=== PATIENT | female | born 1970 | race Caucasian/White ===

== ENCOUNTER 2016-12-08 16:16 | Inpatient (IN) | payer MEDICAID ==
[~2016-12-08] VITALS: Ht 165.1 cm; Wt 99.8 kg
--- NOTE | 2016-12-08 17:08 | NUR ---
RECIEVED PT TO THE FLOOR AT THIS TIME VIA DIRECT ADMIT FROM DR. GALLEGOS'S OFFICE. ORIENTED PT TO ROOM AND FLOOR AT THIS TIME. AWATING ORDERS TO BE PLACED BY DOCTOR AT THIS TIME. ASSESSMENT DONE PER FLOWSHEET. BED IN LOW POSITION AND CALL LIGHT WITHIN REACH. WILL CONTINUE TO MONITOR.
[2016-12-08] MEDS ORDERED: ZESTRIL20 MG PO (17:09)
[2016-12-08] MEDS ORDERED: TENORMIN25 MG PO (17:10)
[2016-12-08] MEDS ORDERED: VALIUM 2 MG TAB2 MG PO (17:10)
[2016-12-08] MEDS ORDERED: HYDROCODON-ACE1 EAC6 PO (17:11)
[2016-12-08] MEDS ORDERED: PRINZIDE 20/12.1 TA1 PO (17:13)
--- NOTE | 2016-12-08 18:35 | NUR ---
IV STARTED TO THE RIGHT WRIST AT THIS TIME. 22G FLUSHED WITH 10CC OF NS AND SECURED WITH OP-SITE AND TAPE. S/L AT THIS TIME AWAITING ORDERS. BED IN LOW POSITION AND CALL LIGHT WITHIN REACH. WILL CONTINUE TO MONITOR.
[2016-12-08 18:43] VITALS: BP 136/79; Ht 165.1 cm; Wt 99.8 kg
[2016-12-08 20:00] VITALS: BP 138/81
[2016-12-08 20:52] LABS: BASOPHILS 0.2 % (0-2); EOSINOPHILS 2.2 % (0-7); HEMATOCRIT 34.7 % (36.0-48.0); HEMOGLOBIN 11.4 g/dL (12-16); IMMATURE GRANULOCYTES 0.1 % (0-5); LYMPHOCYTES 34.7 % (15-50); MCH 29.9 pg (26.0-34.0); MCHC 32.9 g/dL (31.0-37.0); MCV 91.1 fL (80.0-100.0); MEAN PLATELET VOLUME 9.5 fL (7.4-10.4); MONOCYTES 8.1 % (2-11); NEUTROPHILS 54.7 % (40-80); PLATELET COUNT 267 10x3/uL (130-400); RBC 3.81 10x6/uL (4.00-5.40); RDW 12.5 % (11.5-14.5); WBC 9.2 10x3/uL (4.8-10.8)
[2016-12-08 20:57] LABS: ALBUMIN 3.2 g/dL (3.4-5.0); ANION GAP 11.8 mmol/L (8-16); BILIRUBIN - TOTAL 0.44 mg/dL (0.2-1.3); CALCIUM 8.7 mg/dL (8.5-10.1); CARBON DIOXIDE 25.9 mmol/L (21.0-32.0); CREATININE - SERUM 0.9 mg/dL (0.6-1.3); POTASSIUM - SERUM 3.7 mmol/L (3.5-5.1); PROTEIN - SERUM 7.4 g/dL (6.4-8.2)
[2016-12-09] VITALS (8 sets, daily range): BP systolic 102–124; BP diastolic 58–75
--- NOTE | 2016-12-09 07:30 | NUR ---
RECIEVED PT DURING WALKING ROUNDS. PT RESTING IN BED WITH COMPLAINTS OF PAIN OF A 6 ON A SCALE OF 1-10. INTERVENTIONIST IN USE. ASSESSMENT DONE PER FLOWSHEET. BED IN LOW POSITION AND CALL LIGHT WITHIN REACH. WILL CONTINUE TO MONITOR.
--- NOTE | 2016-12-09 09:25 | NUR ---
PT PLACED IN ISOLATION PER VERBAL ORDER FROM DR. REYES, WILL CONTINUE TO MONITOR.
--- NOTE | 2016-12-09 12:50 | NUR ---
PT TAKEN FOR SURGERY AT THIS TIME.
--- NOTE | 2016-12-09 15:14 | NUR ---
RECEIVED PT FROM OR WITH DEBRIDEMENT OF LEFT BUTTOCK, DRESSING INTACT.
[2016-12-10] VITALS: BP 126/66
[2016-12-10 04:00] VITALS: BP 129/77
--- NOTE | 2016-12-10 07:15 | NUR ---
REPORT RECEIVED FROM WEIGHT TRAINER NURSE. CALL LIGHT IN REACH.
[2016-12-10 08:05] VITALS: BP 146/76
--- NOTE | 2016-12-10 09:43 | NUR ---
ASSESSMENT COMPLETED. IV TO RIGHT WRIST WITH TENDERNESS AND REDNESS. DC'D WITH TIP INTACT. RESITED TO LEFT FOREARM WITH 22 GA X1 STICK. PROTONIX IVP AND MERREM IVPB OVER 3 HOURS PER HOUR. DILAUDID SCOOP FILLER SETTINGS CHANGED TO 0.2/10 WITH NO LOCKOUT PER ORDER. SCDs APPLIED TO BLE. DRSG TO BUTTOCKS CHANGED PER ORDER. CALL LIGHT IN REACH. WILL CONTINUE WITH PLAN OF CARE.
--- NOTE | 2016-12-10 11:20 | NUR ---
LYING IN BED WITH EYES CLOSED. RESP EVEN AND UNLABORED. CALL LIGHT IN REACH.
[2016-12-10 12:12] VITALS: BP 144/74
--- NOTE | 2016-12-10 13:59 | NUR ---
VANCOMYCIN IVPB. DENIES NEEDS AT THIS TIME. CALL LIGHT IN REACH.
--- NOTE | 2016-12-10 14:40 | NUR ---
DR. GALLEGOS IN ROOM TO SEE PATIENT.
[2016-12-10 16:07] VITALS: BP 150/62
--- NOTE | 2016-12-10 16:20 | NUR ---
RESTING WITH EYES CLOSED. RESP EVEN AND UNLABORED. CALL LIGHT IN REACH.
--- NOTE | 2016-12-10 18:00 | NUR ---
PATIENT IN BED WITH NO COMPLAINTS. CALL LIGHT WITHIN REACH.
--- NOTE | 2016-12-10 18:07 | NUR ---
NO CHANGES IN INITIAL ASSESSMENT. SCDs TO BLE. CALL LIGHT IN REACH. WILL CONTINUE WITH PLAN OF CARE.
[2016-12-10 20:00] VITALS: BP 131/76
[2016-12-11] VITALS: BP 146/90
--- NOTE | 2016-12-11 00:43 | NUR ---
AWAKE. DENIES ANY NEEDS. BED IS LOW WITH SR UP X2. CALL LIGHT IN REACH.
--- NOTE | 2016-12-11 07:15 | NUR ---
REPORT RECEIVED FROM RACK CARRIER NURSE. CALL LIGHT IN REACH.
[2016-12-11 08:24] VITALS: BP 135/68
--- NOTE | 2016-12-11 08:30 | NUR ---
ASSESSMENT COMPLETE. IV TO L FA PATENT. NS INFUSING AT 125 CC/HR VIA PUMP. PAPER CLEANER DILAUDID 0.2-10-0 IN USE FOR PAIN CONTROL. DRESSING INTACT TO L BUTTOCKS. CONTACT ISOLATION. DENIES ANY NEEDS AT PRESENT.
--- NOTE | 2016-12-11 09:55 | NUR ---
AM MEDS ADMINISTERED. CALL LIGHT IN REACH. SCDs OFF AT THIS TIME. CALL LIGHT IN REACH. WILL CONTINUE WITH PLAN OF CARE.
--- NOTE | 2016-12-11 11:55 | NUR ---
DR. VALENZUELA IN ROOM TO SEE PATIENT AT THIS TIME.
[2016-12-11 12:00] VITALS: BP 149/77
--- NOTE | 2016-12-11 12:36 | NUR ---
MEDS ADMINISTERED PER ORDER. IMPROVEMENT ADVISOR ALSO DC'D. NORCO PO. CALL LIGHT IN REACH.
--- NOTE | 2016-12-11 14:20 | NUR ---
WATCHING TV AT THIS TIME. DENIES NEEDS. CALL LIGHT IN REACH.
--- NOTE | 2016-12-11 15:56 | NUR ---
DRSGs TO BUTTOCKS CHANGED. STATES NORCO DID NOT WORK. MORPHINE 2 MG SIVP. CALL LIGHT IN REACH.
[2016-12-11 16:00] VITALS: BP 140/75
--- NOTE | 2016-12-11 17:59 | NUR ---
IV TO LEFT FOREARM WITH SWELLING AND REDNESS. DC'D WITH TIP INTACT. RESITED TO RIGHT FOREARM WITH 22 GA X1 STICK. NORCO PO PER JEAN CHILEL. CALL LIGHT IN REACH.
--- NOTE | 2016-12-11 18:18 | NUR ---
NO CHANGES IN INITIAL ASSESSMENT. CALL LIGHT IN REACH. SCDs OFF. VISITORS IN ROOM. CALL LIGHT IN REACH. WILL CONTINUE WITH PLAN OF CARE.
[2016-12-11 19:00] VITALS: BP 148/63
--- NOTE | 2016-12-11 20:00 | NUR ---
ASSESSMENT PER FLOWSHEET. IV PATENT RT FOREARM OF NS AT [facility]. SITE CLEAR. DRESSING TO LEFT BUTTOCK C/D/I. PT IN CONTACT ISOLATION. RESING QUIETLY.
--- NOTE | 2016-12-11 20:52 | NUR ---
C/O PAIN LEFT BUTTOCK INCISIONAL SITE RATES PAIN LEVEL #6 MORPHINE 2 MG IVP GIVEN FOR PAIN CONTROL.
--- NOTE | 2016-12-11 22:46 | NUR ---
REQUESTING NERVE PILL TO HELP RELAX AND FOR REST.VALIUM 5MG PO GIVEN FOR REST AND RELAXATION.
--- NOTE | 2016-12-12 | NUR ---
EYES CLOSED RESPIRATIONS WITH EASE AND UNLABORED.
--- NOTE | 2016-12-12 01:56 | NUR ---
RESTING QUIETLY DENIES NEEDS.
[2016-12-12 04:00] VITALS: BP 144/69
--- NOTE | 2016-12-12 05:21 | NUR ---
UP TO BR VOIDS. C/O INCISIONAL PAIN TO LEFT HIP RATES LEVEL #8 MORPHINE 2 MG IVP GIVEN FOR PAIN CONTROL.
--- NOTE | 2016-12-12 06:24 | NUR ---
EYES CLOSED RESPIRATIONS WITH EASE AND UNLABORED.
--- NOTE | 2016-12-12 08:45 | NUR ---
ASSESSMENT PER FLOW SHEET.PT WITHOUT DISTRESS.DRESSING LEFT BUTTOCK IN PLACE.REQUEST PAIN MEDS WHEN TIME.DENIES FURTHER NEEDS.CALL LIGHT IN REACH.CONTACT ISOLATION MAINTAINED.
[2016-12-12 10:16] VITALS: BP 141/64
[2016-12-12 12:10] VITALS: BP 142/78
[2016-12-12 15:51] VITALS: BP 136/82
[2016-12-12] MEDS ORDERED: HYDROCODONE-APA1 TAB PO (17:12)
[2016-12-12] MEDS ORDERED: VIBRAMYCIN 100100 MG PO (17:13)
--- NOTE | 2016-12-12 17:25 | NUR ---
DRESSING TO LEFT BUTTOCKS ORDERED.IV DC WITH CATH INTACT. DISCHARGE INSTRUCTIONS,STATES UNDERSTANDING.
--- NOTE | 2016-12-12 18:07 | NUR ---
LEFT UNIT VIA WHEELCHAIR FOR TRANSPORT HOME.
== END 2016-12-12 18:07 | disposition home or self-care (01) | DRG 572 ==
LOC: D.MS 16:16 → OBSVTIME 16:16 → D.SDCHOLD 16:16 → D.MS 16:23
PROVIDERS: ADMIT Surgery
PROC: 0HB8XZZ Excision of Buttock Skin, External Approach (ICD-10-PCS; principal; 2016-12-09 10:45)
DX: L02.31 Cutaneous abscess of buttock (principal); I10 Essential (primary) hypertension; B95.61 Methicillin susceptible Staphylococcus aureus infection as the cause of diseases classified elsewhere

== ENCOUNTER 2017-03-24 09:00 | Outpatient (CLI) | payer MEDICAID ==
[2016-12-08 18:43] VITALS: BMI 36.6
[~2017-03-24 09:00] MED LIST: HYDROCODON-ACE1 EAC6 PO; HYDROCODONE-APA1 TAB PO; PRINZIDE 20/12.1 TA1 PO; TENORMIN25 MG PO; VALIUM 2 MG TAB2 MG PO; VIBRAMYCIN 100100 MG PO; ZESTRIL20 MG PO
== END 2017-03-24 23:59 | disposition home or self-care (01) ==
LOC: D.MAMMO 09:00
DX: Z12.31 Encounter for screening mammogram for malignant neoplasm of breast (principal)